=== PATIENT | male | born 1985 | race Caucasian/White ===

== ENCOUNTER 2019-05-01 16:27 | Emergency (ER) | payer MEDICARE, MEDICAID, SELFPAY ==
[2019-05-01] VITALS (35 sets, daily range): BP systolic 110–143; BP diastolic 61–90; PULSE 56–88; RESP 7–26; TEMP 37; O2SAT 94–99
--- NOTE | 2019-05-01 16:37 | ED.GENADUL_ITS ---
Discharge Plan Disposition Patient Disposition: HOME Condition: Improving Discharge Details Chief Complaint: GenMedical Clinical Impression: Acute dehydration Primary Care Provider: Greg Vaz ED Provider: Avinash Stark Home Meds and New Rx's Prescriptions: No Action No Known Home Meds RF: 0 Discharge Instructions Instructions: Dehydration (ED) Additional Instructions: You underwent CAT scan of the head, chest x-ray, thyroid testing, comprehensive metabolic panel, complete blood count, troponin laboratory tests. As we discussed your urobilinogen was elevated above normal and you are dehydrated. Home to rest this evening. Small, frequent sips of fluids to maintain hydration. Our care management team will make you a follow-up appointment with Dr. Vaz in clinic. Return if you develop bloody or dark urine, become jaundiced, or have any other new acute concerns. Stand Alone Forms: Work Release Medical Decision Making 34-year-old male smoker presents with nonspecific generalized malaise and weakness over 1 week's time. He has had a slight dry cough, mild headaches, chest tightness. He arrives with blood pressure 141/83, pulse 82, afebrile and with normal oxygenation. Exam is most notable for a normal neurologic examination and diminished breath sounds throughout. Presentation is very nonspecific. A broad differential diagnosis is considered. Laboratories, EKG, chest x-ray, CT scan of the head obtained. Patient given fluid bolus. Laboratories: White blood cell count 9, medical 47, platelets 288. Sodium 141, potassium 3.8, chloride 107, bicarb 25, BUN 12, creatinine 0.8, glucose 110, magnesium 2.2, calcium 8.8, LFTs unremarkable, troponin negative, TSH within normal limits. Urinalysis with SG 1.025, Urobili 4.0 (no evidence of hepatic dysfunction on LFT's). Chest x-ray without acute findings. CT scan of the head without acute intracranial abnormality. Patient remained stable without clear etiology for his malaise. His elevated urobilinogen is curious, but there is no evidence of active hepatitis, cirrhosis, or hemolytic anemia. It certainly will merit reevaluation/recheck. We will ensure the patient has a follow-up in clinic with Dr. Vaz. I discussed his findings with him. He and his will maintain vigilance for changes to urine color, the development of jaundice. Lab Data Lab results reviewed: Yes I reviewed the patient's lab results. Labs: Laboratory Results - last 24 hr 05/01/19 05/01/19 05/01/19 16:43 16:43 16:43 WBC 9.21 RBC 5.51 Hgb 16.9 Hct 47.2 MCV 85.7 MCH 30.7 MCHC 35.8 RDW 12.9 Plt Count 288 MPV 9.9 Immature Gran % 0.3 Neutrophils % 67.0 Lymphocytes % 22.7 Monocytes % 8.3 Eosinophils % 1.5 Basophils % 0.2 Absolute Neutrophils 6.17 Absolute Lymphocytes 2.09 Absolute Monocytes 0.76 H Absolute Eosinophils 0.14 Absolute Basophils 0.02 Sodium 141 Potassium 3.8 Chloride 107 Carbon Dioxide 25.2 Anion Gap 8.8 BUN 12 Creatinine 0.81 Estimated GFR/1.73 m2 >= 60.00 Glucose 110 H Calcium 8.8 Magnesium 2.2 Total Bilirubin 0.5 AST 17 ALT 37 Alkaline Phosphatase 89 Troponin I < 0.05 Total Protein 7.3 Albumin 3.8 TSH 0.66 Monoscreen 05/01/19 16:43 WBC RBC Hgb Hct MCV MCH MCHC RDW Plt Count MPV Immature Gran % Neutrophils % Lymphocytes % Monocytes % Eosinophils % Basophils % Absolute Neutrophils Absolute Lymphocytes Absolute Monocytes Absolute Eosinophils Absolute Basophils Sodium Potassium Chloride Carbon Dioxide Anion Gap BUN Creatinine Estimated GFR/1.73 m2 Glucose Calcium Magnesium Total Bilirubin AST ALT Alkaline Phosphatase Troponin I Total Protein Albumin TSH Monoscreen Negative ECG Data Attestation: I personally reviewed and interpreted this ECG (s) as follows: Interpretation: Normal sinus rhythm, rate of 85, the QRS is narrow, there is nonspecific ST segment flattening in lead aVL. No ST segment elevation. HPI General Mode of arrival: ambulatory . Date/Time Provider Initiated Documentation: 05/01/19 16:28 . Limitations to Documentation: no limitations . Information obtained by: patient . History of Present Illness 34 year old M presents to the emergency department with the chief complaint of General malaise, headache, chest discomfort, weakness, described as mild, Quality is described as constant, Patient started experiencing this day(s) and it has been intermittent. No relieving factors improve symptom(s), No exacerbating factors reported . Patient notes chest pain, cough, headaches, loss of appetite, malaise, shortness of breath and weakness; denies confusion, seizure and syncope. Patient did receive the following treatments prior to arrival, none Related Data Home Medications Medication Instructions Recorded Confirmed Unknown [No Known Home Meds] 05/01/19 05/01/19 Allergies Allergy/AdvReac Type Severity Reaction Status Date / Time No Known Drug Allergies Allergy Unverified 05/01/19 16:35 General Stated Complaint: GenMedical MATTHEW: 3 Review of Systems Narrative: No fall. No focal motor weakness, no change in speech or gait. No lower extremity pain or swelling. No known sick contacts. Continues to smoke. 6 systems reviewed and otherwise negative [facility] Social History Smoking/Tobacco Use Status: Current every day Alcohol Intake: current Drug use: Occasionally Substance use type: marijuana Details: heroin in the past stopped suboxone 3 months ago Do you feel safe at home: Yes Do you feel safe in your relationship?: Yes Exam Narrative Exam Narrative: GEN: awake, alert, oriented 3. Pleasant, well groomed, interactive. HEAD: Normocephalic, atraumatic ENT: Mucous membranes moist, oropharynx edentulous, External ear exam u nremarkable EYES: PERRL, EOMI NECK: Full ROM, no TARI, no menigismus CHEST/RESP: Nontender, diminished throughout CARDIOVASCULAR: RRR, no murmur, rub gutierrez. 2+ Rad pulse bilateral ABDOMEN: Soft, nontender, no mass. +Bowel sounds EXT: Full ROM, no edema, no rash Neuro: Grossly normal neurologic exam, conversant, interactive. Cranial nerves II through XII intact, [id number] intact, visual naqvi intact Psych: Speech fluent, thoughts congruent, affect normal Course Vital Signs Vital signs: Vital Signs Temperature 37.0 C 05/01/19 16:30 Pulse 82 05/01/19 16:30 Respiratory Rate 20 05/01/19 16:30 Blood Pressure 141/83 H 05/01/19 16:30 Pulse Oximetry 96 05/01/19 16:30 Temperature 37.0 C 05/01/19 16:30 Temperature Source Skin 05/01/19 16:30 Pulse 82 05/01/19 16:30 Respiratory Rate 20 05/01/19 16:30 Blood Pressure 141/83 H 05/01/19 16:30 Pulse Oximetry 96 05/01/19 16:30 Oxygen Delivery Method Room Air 05/01/19 16:30 Oxygen Flow Rate 0 05/01/19 16:30 Pain Level 2 05/01/19 16:30
[2019-05-01 16:58] LABS: Abs Immature Grans 0.03 k/cumm (0.0-0.09); Absolute Basophil Count 0.02 k/cumm (0.0-0.2); Absolute Eosinophil Count 0.14 k/cumm (0.0-0.7); Absolute Lymphocyte Count 2.09 k/cumm (1.2-3.4); Absolute Monocyte Count 0.76 k/cumm (0.11-0.7); Absolute Neutrophil Count 6.17 k/cumm (1.2-6.7); Basophils % 0.2; Eosinophils % 1.5; HCT 47.2 % (40.0-50.0); HGB 16.9 g/dL (13.5-17.5); Immature Grans % 0.3; Lymphocytes % 22.7; Mean Corp. HGB Concentration 35.8 g/dL (32.0-36.0); Mean Corpuscular Hemoglobin 30.7 pg (27.0-33.0); Mean Corpuscular Volume 85.7 fL (80-95); Mean Platelet Volume 9.9 fL (8.0-11.0); Monocytes % 8.3; Platelet Count 288 x1000/uL (130-400); RBC 5.51 m/cumm (4.50-6.00); RBC Distribution Width 12.9 % (11.8-14.1); White Blood Cell Count 9.21 k/cumm (4.4-10.8)
[2019-05-01] MEDS: Albuterol/Ipratropium 3 ML UPD VIAL UPD (17:12)
[2019-05-01 17:15] LABS: ALT 37 U/L (16-63); AST 17 U/L (15-37); Albumin 3.8 g/dL (3.4-5.0); Alkaline Phosphatase 89 U/L (46-116); Anion Gap 8.8 mmol/L (3-11); BUN 12 mg/dL (7-18); Bilirubin, Total 0.5 mg/dL (0.2-1.0); CO2 25.2 mmol/L (21.0-32.0); CREATININE 0.81 mg/dL (0.70-1.30); Calcium 8.8 mg/dL (8.5-10.1); Chloride 107 mmol/L (98-107); Glucose 110 mg/dL (74-106); Potassium 3.8 mmol/L (3.5-5.1); Sodium 141 mmol/L (136-145); Total Protein 7.3 g/dL (6.4-8.2)
[2019-05-01] MEDS: Normal Saline 1,000 ML 1000 ML IV (17:17)
[2019-05-01 17:25] LABS: Magnesium 2.2 mg/dL (1.8-2.4); Troponin I < 0.05 ng/Ml (<0.06)
[2019-05-01 17:44] LABS: Mono Screening Negative (Negative)
[2019-05-01 17:47] LABS: TSH 0.66 uIU/mL (0.36-3.74)
--- NOTE | 2019-05-01 18:03 | DI.RAD_ITS ---
EXAM: XR CHEST 2V PA LATERAL XR CHEST 2V PA LATERAL CLINICAL HISTORY: gen malaise, cough gen malaise, cough TECHNIQUE: 2D digital imaging was performed. COMPARISON: No exams were available for comparison FINDINGS: The heart is not enlarged. The lungs are clear and well expanded. No pleural effusion seen. Mediastin al contours appear intact. IMPRESSION: Normal chest
--- NOTE | 2019-05-01 18:03 | DI.CT_ITS ---
EXAM: CT HEAD WO CT HEAD WO CLINICAL HISTORY: malaise, headaches. malaise, headaches TECHNIQUE: Imaging Protocol: Axial computed tomography images with coronal and sagittal reformatted images were created and reviewed COMPARISON: No exams were available for comparison FINDINGS: The ventricular system is normal in appearance. No evidence of acute intracranial hemorrhage, mass effect, or midline shift. The orbital structures are unremarkable. The temporal bone structures appear intact. Calvarium: Normal. Visualized Paranasal sinuses/Mastoids: Clear. IMPRESSION: Normal cranial CT. DATA REPOSITORY: All CT scans at this facility are submitted to the National Radiology Data Registry (NRDR) Dose Index Registry (DIR) with the [employer] (ACR). RADIATION OPTIMIZATION: All CT scans at this facility use at least one of these dose optimization te chniques: automated exposure control; mA and/or kV adjustment per patient size (includes targeted exa ms where dose is matched to clinical indication); or iterative reconstruction.
--- NOTE | 2019-05-01 18:16 | DI.VRAD_ITS ---
PROCEDURE INFORMATION: Exam: CT Head Without Contrast Exam date and time: 05/01/2019 5:57 PM Age: 34 years old Clinical indication: Pain; Malaise or fatigue; Headache TECHNIQUE: Imaging protocol: Computed tomography of the head without contrast. COMPARISON: No relevant prior studies available. FINDINGS: Brain: Normal. No hemorrhage. Unremarkable white matter. No mass effect. Ventricles: Normal. No ventriculomegaly. Bones/joints: Unremarkable. No acute fracture. Sinuses: Visualized sinuses are unremarkable. No fluid levels. Mastoid air cells: Visualized mastoid air cells are well aerated. Soft tissues: Unremarkable. IMPRESSION: No acute intracranial abnormality. Dictated and Authenticated by: Sammy Bingham MD. Ordering:KAIA Da Silva MD
--- NOTE | 2019-05-01 18:20 | DI.VRAD_ITS ---
PROCEDURE INFORMATION: Exam: XR Chest, 2 Views Exam date and time: 05/01/2019 6:03 PM Age: 34 years old Clinical indication: Cough and other: General malaise TECHNIQUE: Imaging protocol: XR of the chest Views: 2 views. COMPARISON: No relevant prior studies available. FINDINGS: Lungs: Unremarkable. No consolidation. Pleural space: Unremarkable. No pleural effusion. No pneumothorax. Heart/Mediastinum: Unremarkable. No cardiomegaly. Bones/joints: Unremarkable. IMPRESSION: No acute findings. Dictated and Authenticated by: Sammy Bingham MD. Ordering:KAIA Da Silva MD
[2019-05-01 19:00] LABS: Bilirubin Negative (Negative); Blood Negative (Negative); Clarity Clear (Clear); Glucose Negative (Negative); Ketones Negative (Negative); Leukocyte Esterase Negative (Negative); Nitrite Negative (Negative); Specific Gravity 1.025 (1.005-1.025); pH 6.5 (5-8)
== END 2019-05-01 19:40 | disposition home or self-care (01) ==
PROVIDERS: Emergency Provider Emergency Medicine; PCP Family Medicine
DX: E86.0 Dehydration (principal); R51 Headache; R82.998 Other abnormal findings in urine
CPT/HCPCS: 36415; 36416; 80053; 82962; 93005; 94640; 96360; 96361; 99285; 70450; 71046; 81003; 83735; 84443; 84484; 85025; 86308; 93010; 99284; J7620

== ENCOUNTER 2019-05-02 15:20 | Outpatient (REF) | payer MEDICARE, MEDICAID, SELFPAY ==
[2019-05-06 10:24] LABS: Hepatitis B Surface Ag Negative (Negative)
[2019-05-06 10:57] LABS: Cholesterol 196 mg/dL (<200); Triglyceride 187 mg/dL (<150)
[2019-05-06 10:58] LABS: Calculated LDL 112 mg/dL; HDL Cholesterol 47 mg/dL (40-60)
[2019-05-06 11:01] LABS: Hepatitis C Ab w Rflx HCV PCR Negative (Negative)
[2019-05-06 14:50] LABS: HIV-1/2 Ag & Ab Screen Negative (Negative)
== END 2019-05-02 15:40 ==
LOC: NCHCN 15:20
PROVIDERS: PCP Family Medicine; Visit Provider Family Medicine
DX: R73.09 Other abnormal glucose (principal); Z11.59 Encounter for screening for other viral diseases; Z11.4 Encounter for screening for human immunodeficiency virus [HIV]; Z68.32 Body mass index [BMI] 32.0-32.9, adult; Z13.6 Encounter for screening for cardiovascular disorders
CPT/HCPCS: 80061; 86803; 87340; 87389; 83036

== ENCOUNTER 2019-05-20 00:38 | Outpatient (CLI) | payer MEDICARE, MEDICAID, SELFPAY ==
--- NOTE | 2019-05-20 07:48 | ETT_ITS ---
APPROVED REPORT Exam: Exercise Treadmill Patient Location: Out-Patient Room/Bed: Stress Nurse: Jyothi Manuel RN BMI: 32.48 Baseline Rhythm: First degree heart block Indications: Patient reports ???sharp/tight??? midsternal chest pain with activity for the past month . ???The pain takes my breath away at times???.and I get ???fatigued really quick? and edel rry vision???. He states this pain lasts approximately 1 minute and goes away with resting in a sitti ng position; lying down ???makes it worse???. He denies any radiation of pain and any other associate d symptoms. Of note patient reports he went off his Suboxone, without weaning, approximately 3 months ago. His PCP recommended he restart this medication and patient did so 3 weeks ago. Medical History Medical History: Past Heroin use Cardiac Medications: None, Allergies: No known drug allergies Cardiac Risk Factors: FHX of CAD, Smoking Previous Cardiac Procedures: None Pretest Chest Pain Characteristics: Dizzyness Exercise History: Sedentary Physical Disabilities: None Lung Sounds: Clear to auscultation and diminished Heart Sounds: Regular Stress Test Details Test: Exercise stress testing was performed using a Waylon protocol. Rest Stress HR Max Heart Rate (APMHR): 185 bpm Resting HR Supine: 68 bpm Target HR (85% APMHR): 157 bpm Resting HR Standin bpm Max HR Achieved: 121 bpm % of APMHR: 65 HR response to stress: Normal HR response to stress BP Resting BP Supine: 120/82 mmHg Resting BP Standin/80 mmHg Max BP: 158/100 mmHg BP response to stress: Normal blood pressure response to stress. ECG Resting ECG: Sinus Rhythm ST Change: none Ectopy: none Stress ECG: Sinus Tachycardia ST Change: Normal Arrhythmia: None Recovery ECG: Sinus Rhythm Recovery ST Change: Normal Recovery Arrhythmia: None Clinical Reason for Termination: Dizzyness Stress Symptoms: Left sided chest pain/tightness (5/10), dizzyness and blurry vision at 4 minutes 59 seconds of exercise that subsided at 56 seconds of recovery. Exercise duration: 6 min07 sec Highest Stage Achieved: Stage 3: 3.4 mph at 14% grade. Exercise capacity: 7.22 METs Functional Capacity: Moderately diminished capacity Stress ECG Conclusion 1. She exercised for 6 minutes and 7 seconds (7 METS). Exercise was stopped due to dizziness prior t o patient reaching goal heart rate. 2. Patient reached 65% of target heart rate with a rate pressure product of 18,000. 3. This is an inadequate study due to inability to reach target heart rate. At given stress level, t here was no evidence of ischemia. 4. This is an indeterminate stress test. Protocol Used: Regadenoson Stress Test Summary STAGE HR BP Symptoms NOTES Supine 68 120/82 Standing 82 110/80 1 min 103 142/84 2 min 120 158/100 3 min 4 min 5 min 6 min 7 min 8 min 9 min 10 min 1 min recovery 101 101 3 min recovery 71 71 6 min recovery 74 74
== END 2019-05-20 00:58 ==
PROVIDERS: PCP Family Medicine; Visit Provider Family Medicine
DX: R07.89 Other chest pain (principal); R53.83 Other fatigue; F17.200 Nicotine dependence, unspecified, uncomplicated; Z82.49 Family history of ischemic heart disease and other diseases of the circulatory system
CPT/HCPCS: 93017

== ENCOUNTER 2019-05-20 09:10 | Outpatient (CLI) | payer MEDICARE, MEDICAID, SELFPAY | END 2019-05-20 09:30 | PROVIDERS: PCP Family Medicine; Visit Provider Internal Medicine Cardiovascular Disease | DX: R07.89 Other chest pain (principal); R53.83 Other fatigue; F17.200 Nicotine dependence, unspecified, uncomplicated; Z82.49 Family history of ischemic heart disease and other diseases of the circulatory system | CPT/HCPCS: 93016; 93018 ==

== ENCOUNTER 2019-05-21 20:27 | Outpatient (REF) | payer MEDICARE, MEDICAID, SELFPAY ==
[2019-05-28 05:12] LABS: Amphetamine 1479 ng/mL (Cutoff: 25); Amphetamines Interpretation Positive.; MDA (Ecstasy Metabolite) Negative ng/mL (Cutoff: 25); MDMA (Ecstasy) Negative ng/mL (Cutoff: 25); Methamphetamine Negative ng/mL (Cutoff: 25); Phentermine Negative ng/mL (Cutoff: 25); Pseudoephedrine/Ephedrine Negative ng/mL (Cutoff: 25)
== END 2019-05-21 20:47 ==
LOC: NCHCN 20:27
PROVIDERS: PCP Family Medicine; Visit Provider Family Medicine
DX: F11.20 Opioid dependence, uncomplicated (principal)
CPT/HCPCS: 80324

== ENCOUNTER 2019-06-11 18:03 | Outpatient (REF) | payer MEDICARE, MEDICAID, SELFPAY ==
[2019-06-11 20:16] LABS: ESR 7 mm/hr (0-15)
== END 2019-06-11 18:23 ==
LOC: NCHCN 18:03
PROVIDERS: PCP Family Medicine; Visit Provider Family Medicine
DX: R53.81 Other malaise (principal)
CPT/HCPCS: 85652

== ENCOUNTER 2019-09-26 08:32 | Outpatient (CLI) | payer MEDICARE, MEDICAID, SELFPAY | END 2019-09-26 08:52 | PROVIDERS: PCP Family Medicine; Visit Provider Internal Medicine Cardiovascular Disease | DX: R53.81 Other malaise (principal) | CPT/HCPCS: 99203; 99442 ==

== ENCOUNTER 2019-12-17 01:30 | Emergency (ER) | payer MEDICARE, MEDICAID, SELFPAY ==
[2019-12-17 01:33] VITALS: BP 143/84; PULSE 90; RESP 16; TEMP 36.6; O2SAT 98
[2019-12-17] MEDS: Tetracaine 0.5% 4 ML BTL (01:40)
[2019-12-17] MEDS: Erythromycin Ophth Oint 3.5 GM TUBE (01:40)
[2019-12-17] MEDS: Fluorescein STRIPS 100/BOX 1 MG (01:40)
--- NOTE | 2019-12-17 01:42 | W.ED.GENAD ---
Discharge Plan Disposition Patient Disposition: HOME Condition: Good Discharge Details Chief Complaint: EyeProblem Clinical Impression: Welders' keratitis of both eyes Primary Care Provider: Greg Vaz ED Provider: Surjit Quezada Home Meds and New Rx's Prescriptions: Continued buprenorphine-naloxone 8-2 mg tablet, sublingual 2 tab SL DAILY RF: 0 Discharge Instructions Instructions: Corneal Flash Berger (ED) Additional Instructions: At this time you have the equivalent of a sunburn on your eyes, causing the irritation, please take Tylenol and Motrin, and apply the erythromycin ointment to your eyes and a thin strip 3 times daily. 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 If you notice any worsening of your symptoms, or any new symptoms such as vomiting, diarrhea, fever, chills, shortness of breath, chest pain, numbness, weakness, or fainting , please return immediately to the emergency department for reevaluation. Please follow up with your primary care provider as soon as possible for reassessment and reevaluation. As always, it was a pleasure participating in your medical care today. Referrals: [facility] [Outside] Medical Decision Making 34-year-old male whose tetanus is up-to-date presents today for eye irritation. 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 He went to bed with no pain or difficulties. However he woke up currently at 1:30 AM with significant pain and irritation in his eyes which she describes as a gritty-like sensation. Pain is present in both eyes, made worse with light. He denies any significant headache or neck pain, he denies fever chills or visual changes otherwise. He denies any other complaints at this time. No other modifying factors. 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 Physical exam demonstrates clear evidence of a mild Welders flash burn and a thin slit in the area of the likely exposed time when the patient wa Eversion of the lids and evaluation of the eyes otherwise demonstrates no evidence of foreign body. Patient was given erythromycin ointment, had notable improvement of his pain symptomatology while here. Will get follow-up with Dr. Mayorga at [facility]. I have extensively reviewed the treatment plan and discharge instructions with the patient. I have addressed all patient concerns at this time. The patient was made aware of what symptoms to monitor for that would warrant a return to the emergency department. Discussed the plan with the patient, they demonstrate verbal understanding and agreement with our assessment and plan at this time. HPI General Date/Time Provider Initiated Documentation: 12/17/19 01:30. HPI Narrative: 34-year-old male whose tetanus is up-to-date presents today for eye irritation. 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 He went to bed with no pain or difficulties. However he woke up currently at 1:30 AM with significant pain and irritation in his eyes which she describes as a gritty-like sensation. Pain is present in both eyes, made worse with light. He denies any significant headache or neck pain, he denies fever chills or visual changes otherwise. He denies any other complaints at this time. No other modifying factors. 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 Related Data Home Medications Medication Instructions Recorded Confirmed buprenorphine 8 mg-naloxone 2 mg 2 tab SL DAILY tab 09/26/19 12/17/19 sublingual tablet Allergies Allergy/AdvReac Type Severity Reaction Status Date / Time No Known Drug Allergies Allergy Verified 09/26/19 10:02 General Stated Complaint: EyeProblem MATTHEW: 4 Review of Systems All systems reviewed & are unremarkable except as noted in HPI and below PFSH Social History Smoking/Tobacco Use Status: Current every day Alcohol Intake: current Drug use: Occasionally Substance use type: marijuana Details: heroin in the past stopped suboxone 3 months ago Do you feel safe at home: Yes Do you feel safe in your relationship?: Yes Exam Narrative Exam Narrative: 1.Const: Well-nourished, Well-developed, appearing stated age 2.Eyes: PERRL, notable conjunctival irritation. Symmetrical lids. Bilateral eyes: EOMI, PERRL, Peripheral vision intact. No nystagmus. No clinical signs of septal/orbital cellulitis, no redness around the eye, no proptosis. No hyphema, no signs of trauma around the eye, no periorbital emphysema. No sluggishness of the pupil. No ophthalmoplegia. No afferent pupillary defect. Fluorescein exam is positive for uptake in the distribution pattern of a thin slit going from the medial to lateral aspects of the eye consistent with a Welders flash burn, negative Ian sign. Visual acuity normal 3.ENT: Atraumatic external nose and ears. Moist MM. Neck: Symmetric, trachea midline, No thyromegaly. 4.CVS: +S1/S2, No murmurs or gallops. Peripheral pulses 2+ and equal in all extremities. Brisk capillary refill in all extremities. 5.RESP: Unlabored respiratory effort. Clear to auscultation bilaterally. No wheezes rales or rhonchi 6.GI: Soft, Nontender/Nondistended, No hepatosplenomegaly. No guarding or rebound. 7.MSK: Normocephalic/Atraumatic, Extremities w/o deformity or ttp No cyanosis or clubbing, Normal movement of all extremities 8.Skin: Warm, Dry. No rashes or lesions. 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 Sensation grossly intact, no focal neurologic deficits. 10.Psych: (AAO) x3. Appropriate mood and affect Course Vital Signs Vital signs: Vital Signs Temperature 36.6 C 12/17/19 01:33 Pulse 90 12/17/19 01:33 Respiratory Rate 16 12/17/19 01:33 Blood Pressure 143/84 H 12/17/19 01:33 Pulse Oximetry 98 12/17/19 01:33 Temperature 36.6 C 12/17/19 01:33 Temperature Source Skin 12/17/19 01:33 Pulse 90 12/17/19 01:33 Respiratory Rate 16 12/17/19 01:33 Respiratory Effort 12/17/19 01:35 Blood Pressure 143/84 H 12/17/19 01:33 Blood Pressure Position Sitting 12/17/19 01:33 Pulse Oximetry 98 12/17/19 01:33 Oxygen Delivery Method Room Air 12/17/19 01:33 Oxygen Flow Rate 0 12/17/19 01:33 Pain Level 10 12/17/19 01:35
--- NOTE | 2019-12-17 12:08 | NUR.NOTE ---
Nursing Note: Referral faxed to [facility] for follow up. Paty Ronquillo
== END 2019-12-17 01:50 | disposition home or self-care (01) ==
LOC: ER 01:58
PROVIDERS: Emergency Provider Student in an Organized Health Care Education/Training Program; PCP Family Medicine
DX: H16.133 Photokeratitis, bilateral (principal); W89.0XXA Exposure to welding light (arc), initial encounter
CPT/HCPCS: 99283

== ENCOUNTER 2020-02-26 04:34 | Outpatient (CLI) | payer MEDICARE, MEDICAID, SELFPAY | END 2020-02-26 04:54 | PROVIDERS: PCP Family Medicine; Visit Provider Family Medicine | DX: R00.2 Palpitations (principal); R07.89 Other chest pain; R53.81 Other malaise | CPT/HCPCS: 0296T ==

== ENCOUNTER 2021-01-20 09:34 | Outpatient (REF) | payer MEDICARE, MEDICAID, SELFPAY ==
[2021-01-21 12:09] LABS: COVID-19 RT-PCR UVMMC Result Negative (Negative)
== END 2021-01-20 09:35 | disposition home or self-care (01) ==
LOC: NCHCN 09:34
PROVIDERS: PCP Family Medicine; Visit Provider Family Medicine
DX: Z20.822 Contact with and (suspected) exposure to COVID-19 (principal)
CPT/HCPCS: U0003

== ENCOUNTER 2021-11-03 02:50 | Outpatient (CLI) | payer MEDICARE, MEDICAID, SELFPAY ==
--- NOTE | 2021-11-03 08:15 | RT.EKG_ITS ---
APPROVED REPORT Exam: Resting ECG Reason for Exam: High Risk Medication Use Patient Location: O HR:68 bpm ECG Measurements Heart Rate 68 AXIS WI 191 P 4 QRSd 96 QRS 18 QT 414 T 59 QTc 441 Conclusion Sinus rhythm...normal P axis, V-rate 50- 99 Normal Electrocardiogram
== END 2021-11-03 02:51 | disposition home or self-care (01) ==
LOC: RT 02:51
PROVIDERS: PCP Family Medicine; Visit Provider Family Medicine

== ENCOUNTER 2023-03-12 00:59 | Outpatient (CLI) | payer MEDICARE, MEDICAID, SELFPAY ==
[2023-03-12 12:24] LABS: Abs Immature Grans 0.02 10^3/uL (0.0-0.06); Absolute Basophil Count 0.05 10^3/uL (0.0-0.2); Absolute Eosinophil Count 0.21 10^3/uL (0.0-0.7); Absolute Lymphocyte Count 1.96 10^3/uL (1.2-3.4); Absolute Monocyte Count 0.47 10^3/uL (0.1-0.8); Absolute Neutrophil Count 3.51 10^3/uL (1.2-6.7); Basophils % 0.8; Eosinophils % 3.4; HCT 46.4 % (40.0-50.0); HGB 15.7 g/dL (13.5-17.5); Immature Grans % 0.3; Lymphocytes % 31.5; MCHC 33.8 % (32.0-36.0); MCV 86 fL (80-95); MPV 9.9 fL (8.0-11.0); Monocytes % 7.6; Neutrophils % 56.4; Platelet Count 266 10^3/uL (130-400); RBC 5.41 10^6/uL (4.36-5.78); RDW 12.5 % (11.8-14.1); RDW-SD 39.1 fL; WBC 6.22 10^3/uL (4.4-10.8)
[2023-03-12 12:47] LABS: ALT 30 U/L (16-63); AST 16 U/L (15-37); Albumin 3.6 g/dL (3.4-5.0); Alkaline Phosphatase 81 U/L (46-116); BUN 12 mg/dL (7-18); Bilirubin, Total 0.2 mg/dL (0.2-1.0); CREATININE 0.8 mg/dL (0.70-1.30); Calcium 9.1 mg/dL (8.5-10.1); Chloride 104 mmol/L (98-107); Estimated GFR 116.17 (mL/min/1.73m2); Glucose 98 mg/dL (74-106); Potassium 4.1 mmol/L (3.5-5.1); Sodium 139 mmol/L (136-145); TSH (W/Ref FT4) 1.89 uIU/mL (0.36-3.74); Total Protein 7.2 g/dL (6.4-8.2)
[2023-03-12 18:10] LABS: Prolactin 6.6 ng/mL (2.1-17.7)
[2023-03-13 09:14] LABS: Hepatitis B Surface Ag Negative (Negative)
[2023-03-13 09:46] LABS: Hepatitis C Ab w Rflx HCV PCR Negative (Negative)
[2023-03-13 10:01] LABS: HIV-1/2 Ag & Ab Screen Negative (Negative)
[2023-03-21 13:06] LABS: Testosterone, Free 2.92 ng/dL (4.65-18.1); Testosterone, Total 97 ng/dL (240-950)
== END 2023-03-12 01:00 | disposition home or self-care (01) ==
PROVIDERS: PCP Family Medicine; Visit Provider Family Medicine
DX: R53.83 Other fatigue (principal); Z11.4 Encounter for screening for human immunodeficiency virus [HIV]; Z00.00 Encounter for general adult medical examination without abnormal findings; N62 Hypertrophy of breast; Z11.59 Encounter for screening for other viral diseases
CPT/HCPCS: 36415; 80053; 84402; 84403; 86803; 87340; 87389; 84146; 84443; 85025

== ENCOUNTER 2023-03-28 04:03 | Outpatient (CLI) | payer MEDICARE, SELFPAY ==
[2023-03-28 18:45] LABS: FSH 2.7 mIU/mL (1.4-18.1); LH 2.5 mIU/mL (1.5-9.3)
[2023-04-01 16:52] LABS: Testosterone, Total 88 ng/dL (240-950)
== END 2023-03-28 04:04 | disposition home or self-care (01) ==
LOC: LOS 04:03
PROVIDERS: PCP Family Medicine; Visit Provider Family Medicine
DX: E29.1 Testicular hypofunction (principal)
CPT/HCPCS: 36415; 84403; 83001; 83002

== ENCOUNTER 2023-06-01 01:43 | Outpatient (CLI) | payer MEDICARE, SELFPAY ==
[2023-06-01 12:16] LABS: HCT 49.7 % (40.0-50.0); HGB 16.6 g/dL (13.5-17.5); MCH 29.1 pg (27.0-33.0); MCHC 33.4 % (32.0-36.0); MCV 87 fL (80-95); MPV 9.9 fL (8.0-11.0); Platelet Count 287 10^3/uL (130-400); RBC 5.71 10^6/uL (4.36-5.78); RDW 13.2 % (11.8-14.1); RDW-SD 41.8 fL; WBC 7.42 10^3/uL (4.4-10.8)
[2023-06-05 12:46] LABS: Testosterone, Total 701 ng/dL (240-950)
== END 2023-06-01 01:44 | disposition home or self-care (01) ==
LOC: LOS 01:43
PROVIDERS: PCP Family Medicine; Visit Provider Family Medicine
DX: E23.0 Hypopituitarism (principal)
CPT/HCPCS: 36415; 84403; 85027

== ENCOUNTER → 2023-08-15 07:25 | Outpatient (BNVA) | payer MEDICARE, MEDICAID, SELFPAY | PROVIDERS: PCP Family Medicine; Referring Provider Family Medicine; Visit Provider Surgery | DX: K92.1 Melena (principal) | CPT/HCPCS: 99203 ==

== ENCOUNTER 2023-08-24 06:06 | Day surgery (SDC) | payer MEDICARE, MEDICAID, SELFPAY ==
--- NOTE | 2023-08-23 16:20 | W.PM.DSUDISC ---
Date of service: 08/24/23 Time of Service: 08:14 Discharge Plan Disposition Patient Disposition: Home Condition: Good Discharge Details Reason For Visit: EGD and colonoscopy Attending Provider: Jose Calle Primary Care Provider: Greg Vaz Home Meds and New Rx's Prescriptions: Continued fluoxetine 40 mg capsule 40 mg PO DAILY acetic acid 2 % solution 5 drp otic (ear) BID 10 Days Qty: 15 3RF omeprazole 40 mg capsule,delayed release(DR/EC) 40 mg PO DAILY 30 Days Qty: 30 2RF fluticasone propionate 50 mcg/actuation spray,suspension 1 spray intranasal BID PRN Rx Instructions: administer into each nostril naloxone [Narcan] 4 mg/actuation spray,non-aerosol 4 mg intranasal Q2M PRN Rx Instructions: spray 1 dose into ONE nostril; alternate nostrils w each dose until help arrives testosterone cypionate [Depo-Testosterone] 200 mg/mL oil 200 mg IM Q3W albuterol sulfate [Ventolin HFA] 90 mcg/actuation HFA aerosol inhaler 2 puff inhalation Q6H PRN methadone 10 mg/mL concentrate 165 mg PO DAILY Discontinued bisacodyl [Dulcolax (bisacodyl)] 5 mg tablet,delayed release (DR/EC) 5 mg PO ONCE Qty: 4 0RF polyethylene glycol 3350 17 gram/dose powder 17 g PO DAILY Qty: 238 0RF Discharge Instructions Instructions: Colorectal Polyps (GEN), Valiente Esophagus (DC) Additional Instructions: Pablo, we were able to complete your endoscopy and colonoscopy today without much difficulty. We did have to put a small breathing device in to help as he rolled onto your side. I suspect the source of your bleeding is coming from the lower part of your esophagus, where it connects to your stomach. 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 This typically occurs when acid reflux is up from your stomach into your swallowing pipe, although it is certainly exacerbated by smoking, and alcohol consumption. Typically, the first-line of therapy is strong antacid medications. I am going to increase your omeprazole to twice daily for now. I performed several biopsies all along the upper endoscopy. It would probably take a week or 2 for me to get all of those results. Your colonoscopy also went very smoothly. I did not see any signs of inflammatory diseases such as Crohn's disease or ulcerative colitis. I did find 3 polyps, which I removed. And similar to your upper endoscopy, I did do multiple biopsies along the length of your colon to make sure there is nothing there that is not evident to the naked eye. Once I have the results of all of the biopsies and the polyp analysis, I will be in touch with my recommendations. If you have any questions at all, please do not hesitate to call or ask at any time. 1. If tolerated, consume a soft, low fiber diet for 1-2 days. 2[address] Do not drive, drink alcohol, operate machinery, make critical decisions, or do activities that require coordination or balance for 24 hours. 3. Because air was put into your colon during the procedure, expelling air from your rectum (passing gas or farting) is normal. 4. You may not have a bowel movement for 1-3 days because of the colonoscopy prep. This is normal. 5. You may experience a sore throat for 24 to 48 hours. You may use throat lozenges or gargle with warm salt water to relieve the discomfort. 6. Because air was put into your stomach during the procedure, you may experience some belching. 7. Go directly to the emergency room if you notice any of the following: Develop chills (warm to touch), or if you have a thermometer and your temperature is above 101 Difficulty breathing or difficultly swallowing Persistent vomiting Severe abdominal pain, other than gas cramps Severe chest pain Black, tarry stools Any bleeding ? exceeding one tablespoon 8. Call your physician if the site where your intravenous was started becomes red, swollen, painful, and warm to touch. 9. Your physician has reviewed your pre-procedure medications. Please continue to take those medications as previously ordered. You will be given specific information/education regarding any changes to your medications before leaving. Activity:: Activity as Tolerated Diet:: As Tolerated Discharge Orders Discharge Orders: Discharge Order (Routine); Ordered 08/23/23 Ordered By: Jose Calle DS: Diagnosis Discharge Diagnosis (1) Hematochezia: Status: Acute Asessment and Plan: Follow-up on biopsy results
--- NOTE | 2023-08-23 16:21 | W.PM.ENDDOP ---
Date of service: 08/24/23 Time of Service: 08:19 Endoscopy Report DATE OF PROCEDURE: 08/24/23 PRE-OP DIAGNOSIS: Hematochezia POST-OP DIAGNOSIS: other (Valiente's esophagus, colon polyps) PROCEDURE: EGD with biopsies and colonoscopy with biopsies and polypectomy SURGEON: Jose Calle ANESTHESIA TYPE: General:No Airway and General LMA/ETT ESTIMATED BLOOD LOSS: 15 PATHOLOGY: other (Duodenal biopsies, random biopsies of gastric antrum and body, biopsies of GE junction; random colon biopsies, 0.25 cm colon polyp at 100 cm, 0.75 cm polyp at 85 cm, 0.25 cm polyp at 60 cm) COMPLICATIONS: None DISPOSITION: same day INDICATIONS: Pablo is 38 years old. Has had several months of hematochezia of uncertain etiology. PREP: Miralax/Dulcolax PROCEDURE START TIME: 07:28 PROCEDURE END TIME: 07:59 COLONOSCOPY RETRACTION TIME: 13 FINDINGS: Severe Valiente's esophagus extending from 40 to 42 cm, otherwise normal-appearing stomach and duodenum. 0.25 cm colon polyp at 100 cm, 0.75 cm polyp at 85 cm, 0.25 cm polyp at 60 cm PROCEDURE DESCRIPTION: After the initiation of anesthesia, and with the assistance of a bite block, I advanced a standard gastroscope through the mouth past the hypopharynx and into the esophagus.? Under the direct vision of the scope, I advanced down the esophagus towards the stomach.? The upper, mid, and lower portions of the esophagus were normal-appearing. Around 40 cm from the GE junction was a demarcation of the esophageal mucosa onto the gastric appearing mucosa. The Z-line was irregular, and extended down to 42 cm from the incisors. The edges were heaped up. Narrowband imaging was used to assist with analysis. Clinical features appeared consistent with severe erosive esophagitis, and Valiente's esophagus. The tissue was friable. I was able to advance down into the stomach without any difficulty. I performed retroflexion. I did not see any signs of hiatal hernia. Stomach was insufflated into the rugae were obliterated. The stomach mucosa was all healthy normal-appearing. I advanced down around the incisura angularis towards the pylorus. The gastric antrum and pylorus were normal-appearing. I navigated across the pylorus into the duodenum down to the third portion. Duodenal mucosa was all normal-appearing. I did perform random biopsies of the duodenum using cold forceps without any issues. Camera was then brought back into the stomach, and random biopsies of the gastric antrum and body were performed. This was also done with cold forceps without issue. Next, I brought the camera back up to the segment of Valiente's esophagus, given the short length of it, I performed a single round of four-quadrant biopsies taking great care to encompass the heaped up portion adjacent to the Z-line. The camera was then brought back out along the length the esophagus, which, again, appeared normal. The patient was then rolled onto his side, in preparation for the colonoscopy. Great care was taken to pad him appropriately. He did have some mild hypoxemia, which was remedied with insertion of a LMA. Gas exchange appeared normal, and his hypoxemia resolved. Therefore, I proceeded with colonoscopy. I began by performing an external anorectal exam.? Perineum and skin were normal, as was the anal verge.? There was no evidence of external hemorrhoids.? Next, I performed a digital rectal exam.? I did not appreciate any abnormal findings.? Next, I advanced a colonoscope into the rectal vault.? I performed retroflexion.? This was normal.? Using insufflation, I then advanced the colonoscope beyond the rectal folds and into the sigmoid colon before advancing towards the cecum.? The entirety of the rectum was normal and healthy appearing. With no signs of inflammation or any obvious pathology.? The scope was noted to be in the cecum by identification of the ileocecal valve and appendiceal orifice.? Despite several attempts, I was not able to cannulate the terminal ileum. Since clinical features did not raise any concern for Crohn's disease, I began withdrawing the colonoscope. Around 100 cm from the anal verge was a 0.25 cm flat polyp. This was removed with cold forcep polypectomy. I found another polyp around 85 cm from the anal verge. This was about 0.75 cm and pedunculated. This was removed with cold snare polypectomy without any significant issues. I also found another polyp around 60 cm from the anal verge. This was about 0.25 cm in its largest dimension, and was also removed with cold forceps. Once the scope was withdrawn to the level of the rectum, great care was taken to examine portions of the rectal folds.? Finally, the scope was withdrawn and the patient was brought to the same-day surgery recovery unit as the anesthetic wore off. ?The findings and instructions were shared with the patient prior to discharge. The Blackstone bowel prep score from right to left was 3, 3, 3
--- NOTE | 2023-08-23 19:19 | ANES.PREOP_ITS ---
General Info Date of Service Date Performed: 08/24/23 Height: 5 ft 9 in Weight: 114.475 kg Body Mass Index (BMI): 37.3 Surgical Procedure: Operation Date: 08/24/23 07:35 Proposed Procedure Side Surgeon p Colonoscopy/Gastroscopy Jose Calle MD Meds Allergies and Home Medications Allergies Allergy/AdvReac Type Severity Reaction Status Date / Time No Known Allergies Allergy Verified 08/24/23 06:20 Home Medication Medication Instructions Recorded albuterol sulfate 90 mcg/actuation 2 puff inhalation Q6H PRN 05/18/23 aerosol inhaler (Ventolin HFA) fluticasone propionate 50 1 spray intranasal BID PRN 05/18/23 mcg/actuation nasal spray,suspension naloxone 4 mg/actuation nasal 4 mg intranasal Q2M PRN 05/18/23 spray (Narcan) testosterone cypionate 200 mg/mL 200 mg IM Q3W 05/18/23 intramuscular oil (Depo-Testosterone) acetic acid 2 % ear solution 5 drp otic (ear) BID 10 days #15 mL 06/22/23 fluoxetine 40 mg capsule 40 mg PO DAILY 06/22/23 omeprazole 40 mg capsule,delayed 40 mg PO DAILY 30 days #30 caps 06/22/23 release methadone 10 mg/mL oral concentrate 165 mg PO DAILY 08/22/23 Current Visit Medications: Current Medications Generic Name Dose Route Start Last Admin Trade Name Freq PRN Reason Stop Dose Admin Hyoscyamine Sulfate 0.125 mg 08/23/23 16:21 Hyoscyamine 0.125 Mg Sl/Oral/Chew SL 09/22/23 16:20 DIRECTED PRN Ringer's Solution 1,000 mls @ 80 mls/hr 08/24/23 06:00 IV 09/04/23 23:59 [facility] IV Miscellaneous Supplies 1 each 08/24/23 06:00 Iv Access IV 09/04/23 23:59 DIRECTED LAMAR Ondansetron HCl 4 mg 08/23/23 16:21 Ondansetron 4 Mg/2 Ml Vial IVP 09/22/23 16:20 Q4H PRN PRN Nausea / Vomiting Sodium Chloride 0 ml 08/24/23 06:00 Normal Saline Flush 10 Ml Syr IV 09/04/23 23:59 PRN PRN Sodium Chloride 0 ml 08/24/23 06:00 Normal Saline 10 Ml Vial IJ 09/04/23 23:59 DIRECTED PRN Sterile Water 0 ml 08/24/23 06:00 Water,Injection,Sterile 10 Ml Vial IJ 09/04/23 23:59 DIRECTED PRN PFSH Active Problems Active Problems: Problem Status Onset Code Hematochezia K92.1 Fungal otitis externa B36.9, H62.40 Malaise R53.81 Medical History Medical History Breast lump Chronic rhinitis Opioid dependence Nicotine dependence Anxiety Hernia of anterior abdominal wall GERD without esophagitis Obesity (BMI 30-39.9) Constipation Hypogonadotropic hypogonadism Mixed anxiety and depressive disorder Chronic hoarseness Surgical History Surgical History History of vasectomy Tobacco Smoking/Tobacco Use Status: Current every day Alcohol Alcohol Intake: never Substance Use Substance use: Daily Substance use type: marijuana and heroin Details: heroin in the past Vital Signs and Lab Results Vital Signs Most Recent Vital Signs in EMR: Temp Pulse Resp BP Pulse Ox 36.7 C 60 18 129/76 94 08/24/23 06:29 08/24/23 06:29 08/24/23 06:29 08/24/23 06:29 08/24/23 06:29 Lab Results Blood Type / Crossmatch: No Data to Display Complete Blood Count: No Data to Display Complete Metabolic Panel: No Data to Display Liver Function Panel: No Data to Display Coagulation Panel: No Data to Display Cardiac Panel: No Data to Display Arterial Blood Gas: No Data to Display Venous Blood Gas: No Data to Display Pancreas Panel: No Data to Display Thyroid Panel: No Data to Display Infectious Disease: No Data to Display Blood Cultures: No Data to Display Toxicology Panel: No Data to Display Imaging and Studies Imaging and Studies Study information below may be from another EMR and interpreted by another provider. Please see original notes in EMR for more complete details. EKG Summary: 10/26: Sinus Stress Test Summary: 05/26: indeterminate due to test being stopped prior to goal HR. 7 METS Anesthesia Assessment and Plan Anesthesia History Personal History: No History of Anesthesia Complications Family History: No Family History of Anesthesia Complications Exercise Tolerance Exercise Tolerance: Metabolic Equivalents>4 Cardiac & Pulmonary Exam Cardiac Exam: Normal S1/S2 Heart Sounds Pulmonary Exam: Clear Bilateral Breath Sounds Implantable Cardiac Device Does patient have a Pacemaker or an ICD?: No Airway Exam Known Difficult Airway: No Mallampati Class: 3 Mouth Opening: Normal (> 3cm) Thyromental Distance: Less than 3 cm Facial Hair: Full Bains Neck Range of Motion: Full ROM Neck Circumference: Thick Teeth Condition: Edentulous ASA Classification ASA Score: ASA 3 Emergency Case?: No NPO Status NPO Status: NPO Clears >2 hours, Solids >8 hours Anesthesia Plan Resuscitation Status: Full Code Anesthesia Technique: General Anesthesia Airway Planned: Natural Airway Monitors Used: Standard Monitors Preoperative Comments:: 38 yo male for EGD/colo. Sig PMHx: GERD (omeprazole), anxiety/depression (fluoxetine), malaise, opioid abuse (methadone), smoker, daily cannabis and opioids. Frequent albuterol use, smokes 1 ppd, has not taken his methadone yet today.
[2023-08-24] VITALS (7 sets, daily range): BP systolic 110–137; BP diastolic 50–76; PULSE 57–73; RESP 13–18; TEMP 36.2–36.9; O2SAT 90–96; BMI 37.3
[2023-08-24] MEDS: Lactated Ringers 1,000 ML 80 ML IV (06:32)
--- NOTE | 2023-08-24 07:30 | BOWEL_PTH ---
PATIENT: Delmer Lee JR LOC: [facility] U#:[id number] AGE/SX: 38/M ROOM: RE08/24/[address]: Jose Calle MD : 1985 BED: DIS: 08/24/2023 SPEC #: [id number] RECD: 08/24/23 11:50 STATUS: YOLI RE #: [id number] SANJUANA: 08/24/23 07:[address]: Jose Calle DEPT: Surgical Specimen RECD BY: Mone Reyes ENTERED: 08/24/23 11:52 SP TYPE: Bowel OTHR DR: Greg Vaz Tissues: 1 - BIOPSY BOWEL 2 - STOMACH BIOPSY 3 - STOMACH BIOPSY 4 - ESOPHAGUS BIOPSY 5 - BIOPSY BOWEL 6 - BIOPSY BOWEL 7 - BIOPSY BOWEL 8 - BIOPSY BOWEL Procedures: GROSS AND MICRO LEVEL 4 Comments: [id number]
[2023-08-24] MEDS: Albuterol/Ipratropium 3 ML UPD VIAL UPD (08:07)
--- NOTE | 2023-08-24 08:29 | W.ANESPOSTOP ---
Postoperative Evaluation Date, Time and Location Date Performed: 08/24/23 Time Performed: 08:29 Patient Location: PACU Vital Signs Most Recent Imported Vital Signs: Most Recent Vital Signs Temp Pulse Resp BP Pulse Ox 36.9 C 73 18 111/75 94 08/24/23 08:20 08/24/23 08:20 08/24/23 08:20 08/24/23 08:20 08/24/23 08:20 Pain Score Most Recent Pain Score: Most Recent Pain Score Pain Level 0 08/24/23 06:29 Assessment Mental Status: Awake (Alert & Oriented to Patient Baseline) Airway and Respiratory Function: Patent airway with normal (patient baseline) respiratory exam Cardiovascular Function: Hemodynamically Stable Hydration Status: Adequately Hydrated Nausea & Vomiting: No Nausea or Vomiting Pain: Pt. Denies Any Pain Peripheral Nerve Block: Patient did not receive a nerve block
== END 2023-08-24 09:15 | disposition home or self-care (01) ==
LOC: SUR 06:06
PROVIDERS: PCP Family Medicine; Visit Provider Surgery
DX: D12.3 Benign neoplasm of transverse colon; D37.4 Neoplasm of uncertain behavior of colon; K22.70 Barrett's esophagus without dysplasia; K21.9 Gastro-esophageal reflux disease without esophagitis; D12.4 Benign neoplasm of descending colon; F12.20 Cannabis dependence, uncomplicated; F11.10 Opioid abuse, uncomplicated; K92.1 Melena; K22.89 Other specified disease of esophagus
CPT/HCPCS: 43239; 45380; 45385; 88305; J2405; J2704; J7620

== ENCOUNTER 2023-12-07 02:36 | Outpatient (CLI) | payer MEDICARE, MEDICAID, SELFPAY ==
[2023-12-07 12:23] LABS: Abs Immature Grans 0.05 10^3/uL (0.0-0.06); Absolute Basophil Count 0.05 10^3/uL (0.0-0.2); Absolute Lymphocyte Count 1.85 10^3/uL (1.2-3.4); Absolute Monocyte Count 0.46 10^3/uL (0.1-0.8); Basophils % 0.7 %; Eosinophils % 1.5 %; HCT 52.7 % (40.0-50.0); HGB 17.7 g/dL (13.5-17.5); Immature Grans % 0.7 %; Lymphocytes % 27.6 %; MCHC 33.6 % (32.0-36.0); MCV 86 fL (80-95); MPV 10.3 fL (8.0-11.0); Monocytes % 6.9 %; Neutrophils % 62.6 %; Platelet Count 266 10^3/uL (130-400); RDW 13.2 % (11.8-14.1); RDW-SD 41.4 fL; WBC 6.71 10^3/uL (4.4-10.8)
[2023-12-07 12:37] LABS: Diff Comment RBC Morph Reviewed; RBC Morphology Normal
[2023-12-20 13:19] LABS: Testosterone, Free 19.4 ng/dL (4.65-18.1); Testosterone, Total 536 ng/dL (240-950)
== END 2023-12-07 02:37 | disposition home or self-care (01) ==
LOC: LOS 02:41
PROVIDERS: PCP Family Medicine; Visit Provider Student in an Organized Health Care Education/Training Program
DX: E29.1 Testicular hypofunction; H62.40 Otitis externa in other diseases classified elsewhere, unspecified ear; B36.9 Superficial mycosis, unspecified; J31.0 Chronic rhinitis; F11.20 Opioid dependence, uncomplicated; F17.200 Nicotine dependence, unspecified, uncomplicated; K21.9 Gastro-esophageal reflux disease without esophagitis; R49.0 Dysphonia
CPT/HCPCS: 36415; 80061; 84402; 84403; 86003; 85025